=== PATIENT | female | born 1975 | race Caucasian/White ===

== ENCOUNTER 2019-03-22 19:48 | Emergency (ER) | payer MEDICAID ==
[~2019-03-22] VITALS: Ht 157.5 cm; Wt 59.2 kg
[2019-03-22 20:04] VITALS: Ht 157.5 cm; Wt 59.2 kg
[2019-03-23 00:03] VITALS: BP 120/62
== END 2019-03-22 23:41 | disposition home or self-care (01) ==
LOC: ED 19:48
DX: N39.0 Urinary tract infection, site not specified (principal); N83.511 Torsion of right ovary and ovarian pedicle